=== PATIENT | female | born 1935 | race Caucasian/White ===

== ENCOUNTER 2016-12-17 20:31 | Inpatient (IN) | payer MEDICARE, OTHER ==
--- NOTE | ~2016-12-17 | DS ---
Discharge Summary [address] [place]. [address] NAME: TU EMMANUEL : 37 STATUS : DIS IN PAT#: [id number] AGE: 81 ADM/REG DATE : 12/17/16 MR#: [id number] REPORT SERV DATE: 12/24/16 DICTATED BY: TRACEE STORM DATE: 12/23/16 REPORT STATUS : Draft TRANSCRIBED BY: MODL DATE: 12/23/16 ADMISSION DATE: 12/17/2016 DISCHARGE DATE: 12/23/2016 DISCHARGE DIAGNOSES: 1. Invasive adenocarcinoma of the colon, status post laparoscopic assisted right colectomy, Dr. Dixon, 12/21/2016. 2. Acute gastrointestinal bleeding. 3. Acute blood loss anemia. 4. Mild aortic stenosis. 5. Left ventricular diastolic dysfunction. 6. Hypertension. 7. Hyperlipidemia. 8. Diverticulosis. 9. Hiatal hernia. 10.Gastritis. 11.Duodenitis. 12.Positive ARTHUR, rheumatoid arthritis, and polyclonal gammopathy. Question Sjogren syndrome. OPERATIONS AND PROCEDURES: 1. Colonoscopy and upper GI endoscopy, 12/19/2016, Dr. Gracia. 2. Laparoscopic assisted right colectomy, 12/21/2016, Dr. Dixon. PRESENT ILLNESS: This is a 81-year-old white female, who was triaged in the emergency room on 12/17/2016 at 1735 hours with chief complaint of rectal bleeding. Admission vital signs, blood pressure 129/67, temperature 98.3, pulse 58, respirations 20, O2 saturation 98. After evaluation in the emergency room, her diagnoses were: 1. GI bleed. 2. Anemia. 3. Generalized weakness. 4. Left bundle branch block. She was referred to the Hospitalist Service for admission. She was seen by Dr. Deshawn Lemons and admitted as described on admission history and physical examination. Of note, was that she had a history of colon polyps. ADDITIONAL HISTORY: Per Dr. Lemons. PHYSICAL EXAMINATION: Per Dr. Lemons. ADMISSION LABORATORY: Per Dr. Lemons. Discharge Summary [address] [place]. [address] NAME: TU EMMANUEL : 37 STATUS : DIS IN PAT#: [id number] AGE: 81 ADM/REG DATE : 12/17/16 MR#: [id number] REPORT SERV DATE: 12/24/16 DICTATED BY: TRACEE STORM DATE: 12/23/16 REPORT STATUS : Draft TRANSCRIBED BY: YOANA DATE: 12/23/16 HOSPITAL COURSE: She was admitted by Dr. Lemons with: 1. Gastrointestinal bleeding. 2. Acute blood loss anemia, symptomatic. 3. Orthostasis. 4. Aortic stenosis. 5. New left bundle branch block. She was admitted to [address] [place] [address]. She was started on IV infusion. Her aspirin was held. She was given crystalloid and packed red blood cell resuscitation. Her hospitalist care was by Dr. Mahmood on 12/18/2016, 12/19/2016, and 12/20/2016 and the undersigned on 12/21/2016, 12/22/2016, and 12/23/2016. Her admission hemoglobin was 8.9. It fell to 8.5. She was transfused to a hemoglobin of 10 on 12/18/2016. Subsequent hemoglobins were 9.4, 9.6, 9, 9.2, and 9.2. With hemodynamic and hematologic stabilization, she was taken to the endoscopy suite on 12/19/[address] Gracia. An upper GI endoscopy was performed with findings of hiatal hernia, chronic gastritis, and chronic duodenitis. A colonoscopy was performed. An infiltrative nonobstructing medium-sized mass was found in the proximal ascending colon. The mass was noncircumferential. The mass measured 4 cm in length. A biopsy was done. Two sessile polyps were found at the hepatic flexure. A few small mouthed diverticula were found at the hepatic flexure and sigmoid colon. Internal hemorrhoids were noted. Subsequent pathology was invasive adenocarcinoma. Surgical consultation was obtained. She was seen by Dr. Felix Dixon. The above-mentioned procedure was done on 12/21/2016. There were no brandyn- or post-procedural complications. Her diet was rapidly advanced. When seen by the undersigned on 12/22/2016, she had no chest pain, dyspnea, or nausea and minimal postoperative pain. She was cognitively clear and hemodynamically stable. On 12/23/2016, she felt well. She was ambulatory. She thought she could manage at home. She was seen by Dr. Dixon and the undersigned. She was eating without nausea, vomiting, or abdominal pain. She was not having rectal bleeding. Her IV fluids, BASKET OPERATOR, and Zambrano catheter were discontinued. She was able to void. It was felt, she could be safely discharged home to be seen by her primary care physician, Dr. Priscilla Neil in one week and Dr. Dixon in two weeks. She has yearly followup with Dr. Miller. Discharge Summary [address] [id number] [place]. [address] NAME: TU EMMANUEL : 37 STATUS : DIS IN PAT#: [id number] AGE: 81 ADM/REG DATE : 12/17/16 MR#: [id number] REPORT SERV DATE: 12/24/16 DICTATED BY: TRACEE STORM DATE: 12/23/16 REPORT STATUS : Draft TRANSCRIBED BY: MODL DATE: 12/23/16 She will continue her home diet with this low sodium. She will gradually increase her activity level. DISCHARGE MEDICATIONS: Pending outpatient followup will be amlodipine 10 mg daily; Coreg 12.5 mg twice daily; Cozaar 100 mg daily; Protonix 40 mg twice daily for four weeks, then daily; Zocor 10 mg daily; HydroDIURIL 12.5 mg daily; Caltrate 600 daily; fish oil 2400 mg daily; glucosamine chondroitin two tablets daily; cinnamon oral supplement two capsules daily; aspirin 81 mg daily; biotin 5 mg daily; vitamin D 1000 units daily; lysine 500 mg daily; magnesium oxide 400 mg daily; Florastor 250 mg daily; turmeric 400 mg daily; melatonin 3 mg at bedtime as needed; [place] 5/325 every four to six hours as needed for pain. Further Oncology consultation pending final surgical path. Discharge time greater than 30 minutes. DICTATED BY: Tracee Storm M.D. DD/YOANA Tracee Storm M.D. / [id number] CC: Preeti Glasgow M.D. Kevin P Luce, M.D. Walter Rose, M.D. Henry Paik, M.D. Young S Chang, MD Lisa Gail Carkner, M.D.
--- NOTE | ~2016-12-17 | CN ---
Consultation Report [facility] [address] [place]. [address] NAME: TU EMMANUEL : 37 STATUS : ADM IN PAT#: [id number] AGE: 81 ADM/REG DATE : 12/17/16 MR#: [id number] REPORT SERV DATE: 12/18/16 DICTATED BY: SONIDO GRACIA DATE: 12/18/16 REPORT STATUS : Draft TRANSCRIBED BY: MODL DATE: 12/18/16 CONSULTATION DATE OF CONSULTATION: 12/18/2016 INDICATION: The patient with GI bleeding. HISTORY OF PRESENT ILLNESS: 81-year-old female, who was in her usual state of good health until about four days ago, began experiencing loose, gnzzwu-jj-qxna colored stool, which worsened as the days went by, toward maroon dark stool with streaks of clots. There was no associated abdominal pain. Fever and chills were absent. Stool was slightly loose. There were some formed fecal elements as well. Her previous colonoscopy was more than four years ago with removal of polyp. She believes diverticulosis was found. PAST MEDICAL HISTORY: Aortic stenosis, history of colon polyps, anemia, and hypertension. 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 MEDICATIONS: See MAR. ALLERGIES: NO KNOWN DRUG ALLERGIES. SOCIAL HISTORY: Quit tobacco 22 years ago. Denies any alcohol use. PHYSICAL EXAMINATION: VITAL SIGNS: Temperature is 96.4, blood pressure 153/67, pulse of 68. HEENT: Head is normocephalic, atraumatic. Throat is clear. LUNGS: Clear. HEART: S1, S2 with 1/6 systolic ejection murmur. ABDOMEN: Normoactive bowel sounds. Soft, nondistended, and nontender. EXTREMITIES: Negative for cyanosis, clubbing, or edema. LABORATORY STUDIES: Shows sodium 138, potassium 3.6, BUN 13, creatinine 0.65, white count of 4.7, and H and H of 9.5 and 29.3. IMPRESSION: Gastrointestinal bleeding. For need of further evaluation with upper endoscopy and colonoscopy to rule out ulcer disease, colonic polyps, or diverticular bleeding. RADHA/YOANA Sonido Gracia, Consultation Report [address] [place] [facility] [address] NAME: TU EMMANUEL : 37 STATUS : ADM IN PAT#: [id number] AGE: 81 ADM/REG DATE : 12/17/16 MR#: [id number] REPORT SERV DATE: 12/18/16 DICTATED BY: SONIDO GRACIA DATE: 12/18/16 REPORT STATUS : Draft TRANSCRIBED BY: YOANA DATE: 12/18/16 Preeti / [id number] CC: MD Priscilla Emery M.D.
--- NOTE | ~2016-12-17 | HP ---
History And Physical [address] [place]. [address] NAME: TU EMMANUEL : 37 STATUS : ADM IN [facility]#: [id number] AGE: 81 ADM/REG DATE : 12/17/16 MR#: [id number] REPORT SERV DATE: 12/17/16 DICTATED BY: CHRISTIE BLOOM DATE: 12/17/16 REPORT STATUS : Draft TRANSCRIBED BY: MODL DATE: 12/17/16 DATE OF ADMISSION: 12/17/2016 CHIEF COMPLAINT: A 81-year-old female presenting with GI. HISTORY OF PRESENT ILLNESS: The patient's history was obtained through careful interview with the patient and coupled with review of [facility] and [facility] medical records. For about three days, the patient has had a gassy abdominal discomfort about a 2/10 severity only, that is actually resolved on day of admission. It is just three days ago that she had a bowel movement that looked "like gary Nazario-Aid" with minimal diluted blood in it; then two days ago, actually had no bowel movements. Today, she had three large bloody bowel movements with a very dark maroonish blood in it. There has been no recent melena. She has had nausea, but no vomiting. She has chronic dyspnea on exertion, noted different than usual. No chest pain. Today, she felt lightheaded, had orthostatics symptoms, had near syncope. No chest pain. No abdominal pain today. No headache. No back pain. REVIEW OF SYSTEMS: Otherwise, a 14-point review of systems was obtained and was negative. PAST MEDICAL HISTORY: 1. Aortic stenosis. Followed by Dr. Miller. 2. Colon polyps. Seen by Dr. Mcpherson. 3. Anemia. 4. Hypertension. 5. No lung disease. PAST SURGICAL HISTORY: 1. Triana's neuroma, bilateral feet. 2. Hernia repair x4. 3. Breast biopsy. ALLERGIES: NO KNOWN DRUG ALLERGIES. SOCIAL HISTORY: Quit smoking 22 years ago. Rare alcohol use. Lives in [place], [place]. Is , has three children, has grandchildren and great grandchildren. FAMILY HISTORY: Mother with heart disease. CURRENT MEDICATIONS: Include Norvasc 10 mg daily, aspirin 81 mg daily, biotin, calcium, History And Physical [address] [place]. [address] NAME: TU EMMANUEL : 37 STATUS : ADM IN PAT#: [id number] AGE: 81 ADM/REG DATE : 12/17/16 MR#: [id number] REPORT SERV DATE: 12/17/16 DICTATED BY: CHRISTIE BLOOM DATE: 12/17/16 REPORT STATUS : Draft TRANSCRIBED BY: MODLexa DATE: 12/17/16 vitamin D, Coreg 12.5 mg p.o. b.i.d., calcium D, cinnamon, glucosamine, hydrochlorothiazide 12.5 mg p.o. daily, losartan 100 mg p.o. daily, lysine, magnesium, melatonin, fish oil, Florastor, simvastatin, turmeric. PHYSICAL EXAMINATION: VITAL SIGNS: Temperature 98.3, pulse 58, blood pressure 129/67, respiratory rate 20, O2 saturation 98% on room air. Orthostatics are positive with an increase in pulse and drop in blood pressure. GENERAL: Pleasant, cooperative, female, in no evidence of acute distress. HEENT: Pupils equal, round, and reactive to light. The patient does have conjunctival pallor, but no scleral icterus. Nares are patent. Oropharynx is clear of obstruction. Moist mucous membranes. No intraoral lesions. NECK: Trachea midline. No thyromegaly. LYMPH: No cervical lymphadenopathy. No supraclavicular lymphadenopathy. RESPIRATORY: Clear to auscultation at bases. No wheezes, rales, or rhonchi. Normal respiratory effort. CARDIOVASCULAR: Bradycardic, regular rhythm. The patient does have a 3/6 systolic murmur radiating up into the neck consistent with aortic stenosis. No rubs or gallops. No extremity edema is appreciated. ABDOMEN: Soft, nontender, nondistended. Normal bowel sounds auscultated throughout. No hepatosplenomegaly. DERMATOLOGICAL: Warm and dry extremities. No pallor. No cyanosis. PSYCHIATRIC: Normal affect. Good mood. Alert and oriented x3. LABORATORY DATA: White blood cell count 6.8, hemoglobin 8.9, hematocrit 27.9, platelets 319. Sodium 137, potassium 3.7, chloride 104, bicarb 28, BUN 20, creatinine 0.86, glucose 96. INR 1.2. STUDIES: 1. Chest x-ray by my own evaluation shows no acute cardiopulmonary process. 2. EKG by my own evaluation shows sinus rhythm, new left bundle-branch block compared to October 2014. ASSESSMENT AND PLAN: 1. Gastrointestinal bleed. Place on IV proton pump inhibitor drip. Consult Dr. Mcpherson, assistant auto center manager. Hold aspirin. 2. Acute blood loss anemia, symptomatic. Transfuse blood. 3. Orthostasis. Transfuse blood. Hold hydrochlorothiazide. Write parameters for patient blood pressure medications. 4. Aortic stenosis. Check echocardiogram. 5. New left bundle-branch block. Check echocardiogram. No chest pain. Check telemetry. KPL/MODL Christie Caro History And Physical [address] [address] NAME: TU EMMANUEL : 37 STATUS : ADM IN [facility]#: [id number] AGE: 81 ADM/REG DATE : 12/17/16 MR#: [id number] REPORT SERV DATE: 12/17/16 DICTATED BY: CHRISTIE BLOOM DATE: 12/17/16 REPORT STATUS : Draft TRANSCRIBED BY: YOANA DATE: 12/17/16 Preeti Bloom / [id number] CC: MD Priscilla Emery M.D. David Collins, M.D.
--- NOTE | ~2016-12-17 | OP ---
Record Of Operation [facility] [address] [place]. [address] NAME: TU EMMANUEL : 37 STATUS : DIS IN PAT#: [id number] AGE: 81 ADM/REG DATE : 12/17/16 MR#: [id number] REPORT SERV DATE: 12/24/16 DICTATED BY: FELIX BALLARD DATE: 12/24/16 REPORT STATUS : Draft TRANSCRIBED BY: MODL DATE: 12/24/16 DATE OF PROCEDURE: 12/21/2016 PREOPERATIVE DIAGNOSIS: Adenocarcinoma mid right/ascending colon. POSTOPERATIVE DIAGNOSIS: Adenocarcinoma mid right/ascending colon. PROCEDURE: Laparoscopic-assisted right hemicolectomy with ileal colostomy. SURGEON: Felix Ballard M.D. DESCRIPTION OF OPERATIVE PROCEDURE: The patient was brought to the operating suite, placed in a supine position, and underwent satisfactory general endotracheal anesthesia without incident. The skin of the abdomen was scrubbed, prepped, and draped in the usual sterile fashion. 0.5% Marcaine with epinephrine utilized as supplemental local anesthesia at all intended incision sites. The patient had undergone a laparoscopic ventral incisional hernia repair with 15 x 20 cm patch of polypropylene two years ago. Because of this, I approached the patient from the left lateral aspect of her abdomen. A left subcostal incision was performed, and then a disposable Veress insufflation needle was inserted into the peritoneal cavity, with intraperitoneal tip location ascertained using the saline hanging drop method. CO2 was insufflated into the intraperitoneal cavity for pressures of 15 mmHg. After adequate insufflation pressures were obtained, the Veress needle was removed and an 11 mm trocar was inserted through the left subcostal area into the peritoneal cavity, following which a rigid forward-viewing 10 mm laparoscope was used. Visualization of the intraabdominal parietes revealed no evidence of injury from initial insufflation or puncture. Two additional 5 mm trocars were placed in the left lateral and left lower quadrant of the abdomen. Attention was turned to the midline. As anticipated, there were fairly dense omental adhesions to the previous patch. Using a combination of blunt and cautery dissection, the omental adhesions were taken down off the back of the mesh patch, the hernia repair appeared intact. Then, attention was turned to mobilizing the ileocecum and the right colon. The tumor could be visualized as a "puckering" in the mid ascending right colon. The ileocecum and right colon were mobilized along the retroperitoneal line of Toldt as well as the hepatic flexure using the Harmonic Scalpel. After wide mobilization, laparoscopy was terminated. The trocars were removed and CO2 was allowed to egress from the peritoneal cavity. A right subcostal incision was performed, lateral to the previous mesh patch, dissecting through the skin, subcutaneous tissue, and the right rectus musculature to enter the peritoneal cavity. The kkek-[id number]-[id number] and entire right colon were eviscerated and further mobilization of the hepatic flexure was performed, elevating the colon up off the duodenal sweep and the Record Of Operation [facility] [address] [place]. [address] NAME: TU EMMANUEL : 37 STATUS : DIS IN PAT#: [id number] AGE: 81 ADM/REG DATE : 12/17/16 MR#: [id number] REPORT SERV DATE: 12/24/16 DICTATED BY: FELIX BALLARD DATE: 12/24/16 REPORT STATUS : Draft TRANSCRIBED BY: YOANA DATE: 12/24/16 remaining retroperitoneal attachments. Again, the tumor was readily obvious in the mid right colon. Proximal and distal transection of the colon was performed with a ALEXUS 75 linear stapler proximally in the distal/terminal ileum and distally through the avascular plane over the sweep of the duodenum in the proximal transverse colon. The mesentery was taken down between free ties of 2-0 Vicryl and Harmonic Scalpel and the specimen was handed off the table. The wound was irrigated and hemostasis was assured. Bowel continuity was reestablished via a riui-cr-ufxu stapled ileocolostomy. The antimesenteric borders of the respective bowel were lined up and a stay suture of 2-0 Vicryl was placed for orientation. Small enterotomies were created in the antimesenteric staple line and a ALEXUS-75 linear stapler was passed through these enterotomies. The antimesenteric vazquez of the bowel were lined up. The staple was closed and actuated creating a 75 mm stapled qiiy-no-oqtw anastomosis. The enterotomy created for the insertion of the stapler was closed with a TA60. Finally, the mesentery was reapproximated with running locking 2-0 Vicryl. The anastomosis was palpated and found to be widely patent. The anastomosis was placed back into the peritoneal cavity. Again, irrigation was performed. Hemostasis was assured. The abdominal wall was closed, closing the posterior rectus sheath with a running locking 0 Vicryl, and then multiple interrupted inwngu-se-yhnlw sutures of 0 Vicryl for the anterior rectus sheath and external oblique aponeurosis. Subcutaneous tissue was irrigated and closed with interrupted 3-0 Vicryl, running subcuticular stitch of 4-0 Vicryl for the skin. The left lateral abdominal incisions were closed subcutaneously with interrupted 3-0 Vicryl and running subcuticular stitch of 4-0 Vicryl for the skin. Dermabond skin adhesive placed at all sites. The patient tolerated the procedure well and was returned to PACU in stable condition. At the termination of the procedure, sponge, needle, lap, and instrument counts were correct x3. ESTIMATED BLOOD LOSS: Less than 20 mL. KAREEM/YOANA Felix Ballard M.D. / [id number] CC: Record Of Operation [address] [address] NAME: TU EMMANUEL : 37 STATUS : DIS IN PAT#: [id number] AGE: 81 ADM/REG DATE : 12/17/16 MR#: [id number] REPORT SERV DATE: 12/24/16 DICTATED BY: FELIX BALLARD DATE: 12/24/16 REPORT STATUS : Draft TRANSCRIBED BY: YOANA DATE: 12/24/16 Preeti Glasgow M.D.
--- NOTE | ~2016-12-17 | EGD ---
EGD REPORT [facility] [address] [address] NAME: AURY SWEET : 37 STATUS : ADM IN PAT#: [id number] AGE: 81 ADM/REG DATE : 12/17/16 MR#: [id number] REPORT SERV DATE: 12/19/16 DICTATED BY: SONIDO GRACIA DATE: 12/19/16 REPORT STATUS : Draft TRANSCRIBED BY: [employer] DATE: 12/19/16 Endoscopy Center Patient Name: Aury Sweet Date of : 1935 Attending MD: SONIDO GRACIA MD Procedure Date No Time: 12/19/2016 Procedure: Colonoscopy Indications: Hematochezia, Iron deficiency anemia Referring MD: ELSA LEBLANC, TRACEE ALICIA MD Medicines: Propofol per Anesthesia Complications: No immediate complications. Procedure: Pre-Anesthesia Assessment: - ASA Grade Assessment: III - A patient with severe systemic disease. After I obtained informed consent, the scope was passed under direct vision. Throughout the procedure, the patient's blood pressure, pulse, and oxygen saturations were monitored continuously. The PCF [id number] was introduced through the anus and advanced to the cecum, identified by appendiceal orifice and ileocecal valve. The colonoscopy was performed without difficulty. The patient tolerated the procedure well. The quality of the bowel preparation was good. Findings: The perianal and digital rectal examinations were normal. An infiltrative non-obstructing medium-sized mass was found in the proximal ascending colon. The mass was non-circumferential. The mass measured four cm in length. In addition, its diameter measured thirty mm. No bleeding was present. This was biopsied with a cold forceps for histology. Two sessile polyps were found at the hepatic flexure. The polyps were 10 to 12 mm in size. These were biopsied with a cold forceps for histology. These polyps were very flat and very smooth surfaced. They were next to each other at the hepatic flexure. These polyps appeared benign. A few small-mouthed diverticula were found at the hepatic flexure. A few small-mouthed diverticula were found in the sigmoid colon. Internal hemorrhoids were found during retroflexion and were Grade I (internal hemorrhoids that do not prolapse). The rest of the colon was normal. Impression: - Likely malignant tumor in the proximal ascending colon. Removal was not done. Biopsied. - Two 10 to 12 mm polyps at the hepatic flexure. Biopsied. EGD REPORT [address] [address] NAME: AURY SWEET : 37 STATUS : ADM IN [facility]#: [id number] AGE: 81 ADM/REG DATE : 12/17/16 MR#: [id number] REPORT SERV DATE: 12/19/16 DICTATED BY: SONIDO GRACIA DATE: 12/19/16 REPORT STATUS : Draft TRANSCRIBED BY: [employer] DATE: 12/19/16 - Diverticulosis at the hepatic flexure. - Diverticulosis in the sigmoid colon. - Internal hemorrhoids. Recommendation: - Return patient to [facility] for [facility] care. Procedure Code(s): --- Professional --- 98723, Colonoscopy, flexible, proximal to splenic flexure; with biopsy, single or multiple Diagnosis Code(s): --- Professional --- D49.0, Neoplasm of unspecified behavior of digestive system D12.3, Benign neoplasm of transverse colon K64.0, First degree hemorrhoids K57.30, Diverticulosis of large intestine without perforation or abscess without bleeding K92.1, Melena D50.9, Iron deficiency anemia, unspecified CPT copyright 2013 [employer]. All rights reserved. The codes documented in this report are preliminary and upon sprinkler fitter review may be revised to meet current compliance requirements. Sonido Gracia MD SONIDO GRACIA MD 12/19/2016 8:33 AM This report has been signed electronically. Number of Addenda: 0 Note Initiated On: 12/19/2016 7:11 AM Scope Withdrawal Time 0 hours 8 minutes 38 seconds [address] [place] [address]
--- NOTE | ~2016-12-17 | EGD ---
EGD REPORT [facility] [address] [place] [address] NAME: AURY SWEET : 39 STATUS : ADM IN PAT#: [id number] AGE: 81 ADM/REG DATE : 12/17/16 MR#: [id number] REPORT SERV DATE: 12/19/16 DICTATED BY: SONIDO GRACIA DATE: 12/19/16 REPORT STATUS : Draft TRANSCRIBED BY: [facility] DATE: 12/19/16 Endoscopy Center Patient Name: Aury Sweet Date of : 1935 Attending MD: SONIDO GRACIA MD Procedure Date No Time: 12/19/2016 Procedure: Upper GI endoscopy Indications: Iron deficiency anemia, Hematochezia Referring MD: ELSA LEBLANC, TRACEE ALICIA MD Medicines: Propofol per Anesthesia Complications: No immediate complications. Procedure: Pre-Anesthesia Assessment: - ASA Grade Assessment: III - A patient with severe systemic disease. After obtaining informed consent, the endoscope was passed under direct vision. Throughout the procedure, the patient's blood pressure, pulse, and oxygen saturations were monitored continuously. The GIF [id number] was introduced through the mouth, and advanced to the second part of duodenum. The upper GI endoscopy was accomplished without difficulty. The patient tolerated the procedure well. Findings: A medium-sized hiatus hernia was present. Diffuse moderate inflammation characterized by erosions, erythema and friability was found in the stomach. Diffuse moderate inflammation characterized by erosions, erythema and friability was found in the duodenal bulb and in the first part of the duodenum. Impression: - Hiatus hernia. - Chronic gastritis. - Chronic duodenitis. Recommendation: - Return patient to [facility] for ongoing care. Procedure Code(s): --- Professional --- 25634, Esophagogastroduodenoscopy, flexible, transoral; diagnostic, including collection of specimen(s) by brushing or washing, when performed (separate procedure) Diagnosis Code(s): --- Professional --- K44.9, Diaphragmatic hernia without obstruction or gangrene EGD REPORT [address] [address] NAME: AURY SWEET : 39 STATUS : ADM IN [facility]#: [id number] AGE: 81 ADM/REG DATE : 12/17/16 MR#: [id number] REPORT SERV DATE: 12/19/16 DICTATED BY: SONIDO GRACIA. DATE: 12/19/16 REPORT STATUS : Draft TRANSCRIBED BY: [employer] DATE: 12/19/16 K29.50, Unspecified chronic gastritis without bleeding K29.80, Duodenitis without bleeding D50.9, Iron deficiency anemia, unspecified K92.1, Melena CPT copyright 2013 [employer]. All rights reserved. The codes documented in this report are preliminary and upon rehab services aide review may be revised to meet current compliance requirements. Sonido Gracia MD SONIDO GRACIA MD 12/19/2016 8:13 AM This report has been signed electronically. Number of Addenda: 0 Note Initiated On: 12/19/2016 7:33 AM Scope Withdrawal Time 0 hours 0 minutes [address] [place] [id number]
[2016-12-17 18:12] LABS: BASOPHILS 0.4 %; BASOPHILS ABSOLUTE 0.03 10/3/uL (0.0-0.16); EOSINOPHILS 2.2 %; EOSINOPHILS ABSOLUTE 0.15 10/3/uL (0.0-0.53); IMMATURE GRANULOCYTES 0.1 %; IMMATURE GRANULOCYTES ABSOLUTE 0.01 10/3/uL (0.0-0.11); LYMPHOCYTES 15.1 %; LYMPHOCYTES ABSOLUTE 1.03 10/3/uL (0.67-4.30); MEAN PLATELET VOLUME 7.8 fL (9.2-13.0); MONOCYTES 8.6 %; MONOCYTES ABSOLUTE 0.59 10/3/uL (0.21-1.20); NEUTROPHILS 73.6 %; NEUTROPHILS ABSOLUTE 5.03 10/3/uL (2.02-8.40); RBC DISTRIBUTION WIDTH 14.6 % (12.0-16.0); RED CELL COUNT 3.27 10/6/uL (4.0-5.6); WHITE BLOOD CELLS 6.8 10/3/uL (4.5-10.5)
[2016-12-17 18:13] LABS: HEMATOCRIT 27.9 % (36.0-48.0); HEMOGLOBIN 8.9 g/dL (12.0-16.0); MANUAL DIFF NO %; MEAN CORPUS HGB CONC 31.9 g/dL (32.0-36.0); MEAN CORPUSCULAR HEMOGLOB 27.2 pg (26.0-34.0); MEAN CORPUSCULAR VOLUME 85.3 fL (80-100); PLATELET COUNT 319 10/3/uL (150-400)
[2016-12-17 18:27] LABS: A/G RATIO 0.7 (0.7-1.9); ALBUMIN 3.4 G/DL (3.5-5.0); ALKALINE PHOSPHATASE 78 U/L (45-117); CALCIUM, SERUM 8.9 MG/DL (8.5-10.4); CHLORIDE, SERUM 104 MMOL/L (96-112); CO2 (CARBON DIOXIDE) 28 MMOL/L (24-34); CREATININE 0.86 MG/DL (0.55-1.02); GFR AFRICAN AMERICAN 74 ML/MIN (>=60); GFR NON AFRICAN AMERICAN 64 ML/MIN (>=60); GLOBULIN 5.2 G/DL (2.5-4.1); GLUCOSE, SERUM 96 MG/DL (60-99); INTERNATIONAL NORMAL RATI 1.2 UNITS (-); PARTIAL THROMBO TIME 27.8 SEC (22.5-37.2); POTASSIUM, SERUM 3.7 MMOL/L (3.5-5.3); PROTIME (NOT ORD) 14.6 SEC (12.0-14.5); SGOT(AST) 22 U/L (5-40); SGPT(ALT) 18 U/L (5-65); SODIUM, SERUM 137 MMOL/L (135-148); TOTAL BILIRUBIN 0.4 MG/DL (0-1.2); TOTAL PROTEIN 8.6 G/DL (6.0-8.5)
[2016-12-17 18:28] LABS: BUN (BLOOD UREA NITROGEN) 20 MG/DL (6-23)
[~2016-12-17 20:31] MED LIST: ASAB PO; BIOTIN10 MG OR; CALTRA600D PO; CINNAMON PLUS1 EACH PO; COREG12 PO; COZAAR100 MG PO; FERROUS SULF324 MG PO; FISH OIL1200 MG PO; FISH-EPA1000 MG PO; GLUCCHONDR PO; HCTZ12.5 PO; HYDROCHLOROT12.5 MG PO; L-LYSINE ACE500 MG OR; MAGOX4 PO; MELA3 PO; NORCO1 TA1 PO; NORV10 PO; NORV5 PO; PROBIOTIC; VITAMIN D31000 UNIT PO; ZOCOR10 PO
[2016-12-17] MEDS ORDERED: GLUCCHONDR PO (20:32)
[2016-12-17] MEDS ORDERED: HALF81 PO (20:32)
[2016-12-17] MEDS ORDERED: CINNAMONPO PO (20:32)
[2016-12-17] MEDS ORDERED: BIOTIN5 MG PO (20:33)
[2016-12-17] MEDS ORDERED: FLORASTOR250 MG PO (20:35)
[2016-12-17] MEDS ORDERED: VITAMIN D1000 UNI1 PO (20:35)
[2016-12-17] MEDS ORDERED: MAGOX4 PO (20:35)
[2016-12-17] MEDS ORDERED: L-LYSINE500 M1 PO (20:35)
[2016-12-17] MEDS ORDERED: TURMERIC PO (20:36)
[2016-12-17] MEDS ORDERED: MELA3 PO (20:36)
[2016-12-17 21:45] LABS: TROPONIN I <0.02 NG/ML (<0.05)
[2016-12-17 23:45] LABS: HEMATOCRIT 26.6 % (36.0-48.0); HEMOGLOBIN 8.5 g/dL (12.0-16.0)
[2016-12-18 06:12] LABS: BASOPHILS 0.2 %; BASOPHILS ABSOLUTE 0.01 10/3/uL (0.0-0.16); EOSINOPHILS 2.8 %; EOSINOPHILS ABSOLUTE 0.13 10/3/uL (0.0-0.53); HEMOGLOBIN 9.5 g/dL (12.0-16.0); IMMATURE GRANULOCYTES 0.2 %; IMMATURE GRANULOCYTES ABSOLUTE 0.01 10/3/uL (0.0-0.11); LYMPHOCYTES ABSOLUTE 0.89 10/3/uL (0.67-4.30); MEAN CORPUS HGB CONC 32.4 g/dL (32.0-36.0); MEAN CORPUSCULAR HEMOGLOB 27.6 pg (26.0-34.0); MEAN CORPUSCULAR VOLUME 85.2 fL (80-100); MEAN PLATELET VOLUME 8.2 fL (9.2-13.0); MONOCYTES 10.9 %; MONOCYTES ABSOLUTE 0.51 10/3/uL (0.21-1.20); NEUTROPHILS 66.9 %; NEUTROPHILS ABSOLUTE 3.14 10/3/uL (2.02-8.40); PLATELET COUNT 298 10/3/uL (150-400); RBC DISTRIBUTION WIDTH 14.7 % (12.0-16.0); RED CELL COUNT 3.44 10/6/uL (4.0-5.6); WHITE BLOOD CELLS 4.7 10/3/uL (4.5-10.5)
[2016-12-18 06:14] LABS: INTERNATIONAL NORMAL RATI 1.2 UNITS (-); PARTIAL THROMBO TIME 27.5 SEC (22.5-37.2); PROTIME (NOT ORD) 15.3 SEC (12.0-14.5)
[2016-12-18 06:15] LABS: HEMATOCRIT 29.3 % (36.0-48.0); MANUAL DIFF NO %
[2016-12-18 06:39] LABS: A/G RATIO 0.7 (0.7-1.9); CALCIUM, SERUM 8.9 MG/DL (8.5-10.4); CHLORIDE, SERUM 108 MMOL/L (96-112); CO2 (CARBON DIOXIDE) 24 MMOL/L (24-34); CREATININE 0.65 MG/DL (0.55-1.02); GFR AFRICAN AMERICAN 98 ML/MIN (>=60); GFR NON AFRICAN AMERICAN 84 ML/MIN (>=60); GLOBULIN 4.6 G/DL (2.5-4.1); GLUCOSE, SERUM 93 MG/DL (60-99); POTASSIUM, SERUM 3.6 MMOL/L (3.5-5.3); SGOT(AST) 23 U/L (5-40); SGPT(ALT) 16 U/L (5-65); SODIUM, SERUM 138 MMOL/L (135-148); TOTAL BILIRUBIN 0.7 MG/DL (0-1.2); TOTAL PROTEIN 7.6 G/DL (6.0-8.5); TROPONIN I <0.02 NG/ML (<0.05)
[2016-12-18 06:41] LABS: ALKALINE PHOSPHATASE 66 U/L (45-117); BUN (BLOOD UREA NITROGEN) 13 MG/DL (6-23)
[2016-12-18 11:19] LABS: HEMATOCRIT 30.8 % (36.0-48.0); HEMOGLOBIN 9.9 g/dL (12.0-16.0)
[2016-12-18 18:21] LABS: HEMATOCRIT 30.6 % (36.0-48.0)
[2016-12-18 23:35] LABS: HEMATOCRIT 28.9 % (36.0-48.0); HEMOGLOBIN 9.4 g/dL (12.0-16.0)
[2016-12-19 05:39] LABS: BASOPHILS 0.4 %; BASOPHILS ABSOLUTE 0.02 10/3/uL (0.0-0.16); EOSINOPHILS 1.7 %; EOSINOPHILS ABSOLUTE 0.09 10/3/uL (0.0-0.53); HEMATOCRIT 29.9 % (36.0-48.0); HEMOGLOBIN 9.6 g/dL (12.0-16.0); IMMATURE GRANULOCYTES 0.2 %; IMMATURE GRANULOCYTES ABSOLUTE 0.01 10/3/uL (0.0-0.11); LYMPHOCYTES 16.8 %; LYMPHOCYTES ABSOLUTE 0.91 10/3/uL (0.67-4.30); MEAN CORPUS HGB CONC 32.1 g/dL (32.0-36.0); MEAN CORPUSCULAR HEMOGLOB 27.2 pg (26.0-34.0); MEAN CORPUSCULAR VOLUME 84.7 fL (80-100); MEAN PLATELET VOLUME 8.2 fL (9.2-13.0); MONOCYTES 8.1 %; MONOCYTES ABSOLUTE 0.44 10/3/uL (0.21-1.20); NEUTROPHILS 72.8 %; NEUTROPHILS ABSOLUTE 3.95 10/3/uL (2.02-8.40); PLATELET COUNT 314 10/3/uL (150-400); RBC DISTRIBUTION WIDTH 15.1 % (12.0-16.0); RED CELL COUNT 3.53 10/6/uL (4.0-5.6); WHITE BLOOD CELLS 5.4 10/3/uL (4.5-10.5)
[2016-12-19 05:41] LABS: MANUAL DIFF NO %
[2016-12-19 05:50] LABS: CALCIUM, SERUM 9.2 MG/DL (8.5-10.4); CHLORIDE, SERUM 109 MMOL/L (96-112); CO2 (CARBON DIOXIDE) 26 MMOL/L (24-34); CREATININE 0.62 MG/DL (0.55-1.02); GFR AFRICAN AMERICAN 99 ML/MIN (>=60); GFR NON AFRICAN AMERICAN 86 ML/MIN (>=60); GLUCOSE, SERUM 89 MG/DL (60-99); SODIUM, SERUM 142 MMOL/L (135-148)
[2016-12-19 05:52] LABS: BUN (BLOOD UREA NITROGEN) 9 MG/DL (6-23)
[2016-12-19 21:50] LABS: CEA 1.2 NG/ML
[2016-12-20 05:51] LABS: BASOPHILS 0.2 %; BASOPHILS ABSOLUTE 0.01 10/3/uL (0.0-0.16); EOSINOPHILS 1.9 %; EOSINOPHILS ABSOLUTE 0.11 10/3/uL (0.0-0.53); HEMATOCRIT 27.9 % (36.0-48.0); IMMATURE GRANULOCYTES 0.2 %; IMMATURE GRANULOCYTES ABSOLUTE 0.01 10/3/uL (0.0-0.11); LYMPHOCYTES 18.3 %; LYMPHOCYTES ABSOLUTE 1.05 10/3/uL (0.67-4.30); MANUAL DIFF NO %; MEAN CORPUS HGB CONC 32.3 g/dL (32.0-36.0); MEAN CORPUSCULAR HEMOGLOB 27.4 pg (26.0-34.0); MEAN CORPUSCULAR VOLUME 85.1 fL (80-100); MEAN PLATELET VOLUME 8.1 fL (9.2-13.0); MONOCYTES 11.7 %; MONOCYTES ABSOLUTE 0.67 10/3/uL (0.21-1.20); NEUTROPHILS 67.7 %; PLATELET COUNT 281 10/3/uL (150-400); RBC DISTRIBUTION WIDTH 14.9 % (12.0-16.0); RED CELL COUNT 3.28 10/6/uL (4.0-5.6); WHITE BLOOD CELLS 5.8 10/3/uL (4.5-10.5)
[2016-12-20 05:59] LABS: BUN (BLOOD UREA NITROGEN) 9 MG/DL (6-23); CHLORIDE, SERUM 109 MMOL/L (96-112); CO2 (CARBON DIOXIDE) 24 MMOL/L (24-34); GFR AFRICAN AMERICAN 96 ML/MIN (>=60); GFR NON AFRICAN AMERICAN 82 ML/MIN (>=60); GLUCOSE, SERUM 82 MG/DL (60-99); POTASSIUM, SERUM 3.9 MMOL/L (3.5-5.3); SODIUM, SERUM 139 MMOL/L (135-148)
[2016-12-22 06:19] LABS: BASOPHILS 0 %; EOSINOPHILS 0.4 %; EOSINOPHILS ABSOLUTE 0.06 10/3/uL (0.0-0.53); HEMATOCRIT 29.3 % (36.0-48.0); HEMOGLOBIN 9.2 g/dL (12.0-16.0); IMMATURE GRANULOCYTES 0.4 %; IMMATURE GRANULOCYTES ABSOLUTE 0.06 10/3/uL (0.0-0.11); LYMPHOCYTES 3.3 %; LYMPHOCYTES ABSOLUTE 0.55 10/3/uL (0.67-4.30); MANUAL DIFF NO %; MEAN CORPUS HGB CONC 31.4 g/dL (32.0-36.0); MEAN CORPUSCULAR HEMOGLOB 27.1 pg (26.0-34.0); MEAN CORPUSCULAR VOLUME 86.2 fL (80-100); MEAN PLATELET VOLUME 9.1 fL (9.2-13.0); MONOCYTES 5.8 %; MONOCYTES ABSOLUTE 0.97 10/3/uL (0.21-1.20); NEUTROPHILS 90.1 %; PLATELET COUNT 248 10/3/uL (150-400); RBC DISTRIBUTION WIDTH 14.7 % (12.0-16.0); WHITE BLOOD CELLS 16.7 10/3/uL (4.5-10.5)
[2016-12-22 06:42] LABS: A/G RATIO 0.8 (0.7-1.9); ALBUMIN 3.2 G/DL (3.5-5.0); BUN (BLOOD UREA NITROGEN) 10 MG/DL (6-23); CALCIUM, SERUM 9.1 MG/DL (8.5-10.4); CHLORIDE, SERUM 108 MMOL/L (96-112); CO2 (CARBON DIOXIDE) 22 MMOL/L (24-34); CREATININE 0.59 MG/DL (0.55-1.02); GFR AFRICAN AMERICAN 101 ML/MIN (>=60); GFR NON AFRICAN AMERICAN 87 ML/MIN (>=60); GLOBULIN 4.1 G/DL (2.5-4.1); POTASSIUM, SERUM 4.5 MMOL/L (3.5-5.3); SGPT(ALT) 31 U/L (5-65); SODIUM, SERUM 140 MMOL/L (135-148); TOTAL BILIRUBIN 0.3 MG/DL (0-1.2); TOTAL PROTEIN 7.3 G/DL (6.0-8.5)
[2016-12-22 06:43] LABS: ALKALINE PHOSPHATASE 54 U/L (45-117); GLUCOSE, SERUM 137 MG/DL (60-99)
[2016-12-22 06:44] LABS: SGOT(AST) 42 U/L (5-40)
[2016-12-23 06:20] LABS: BASOPHILS 0 %; EOSINOPHILS 0.1 %; EOSINOPHILS ABSOLUTE 0.01 10/3/uL (0.0-0.53); HEMATOCRIT 28.6 % (36.0-48.0); HEMOGLOBIN 9.2 g/dL (12.0-16.0); IMMATURE GRANULOCYTES 0.3 %; IMMATURE GRANULOCYTES ABSOLUTE 0.03 10/3/uL (0.0-0.11); LYMPHOCYTES 5.4 %; LYMPHOCYTES ABSOLUTE 0.61 10/3/uL (0.67-4.30); MANUAL DIFF NO %; MEAN CORPUS HGB CONC 32.2 g/dL (32.0-36.0); MEAN CORPUSCULAR HEMOGLOB 27.3 pg (26.0-34.0); MEAN CORPUSCULAR VOLUME 84.9 fL (80-100); MEAN PLATELET VOLUME 8.5 fL (9.2-13.0); MONOCYTES 5.7 %; MONOCYTES ABSOLUTE 0.64 10/3/uL (0.21-1.20); NEUTROPHILS 88.5 %; NEUTROPHILS ABSOLUTE 10.02 10/3/uL (2.02-8.40); PLATELET COUNT 325 10/3/uL (150-400); RBC DISTRIBUTION WIDTH 14.8 % (12.0-16.0); RED CELL COUNT 3.37 10/6/uL (4.0-5.6); WHITE BLOOD CELLS 11.3 10/3/uL (4.5-10.5)
[2016-12-23 06:31] LABS: BUN (BLOOD UREA NITROGEN) 10 MG/DL (6-23); CALCIUM, SERUM 8.6 MG/DL (8.5-10.4); CHLORIDE, SERUM 102 MMOL/L (96-112); CO2 (CARBON DIOXIDE) 24 MMOL/L (24-34); CREATININE 0.57 MG/DL (0.55-1.02); GFR AFRICAN AMERICAN 102 ML/MIN (>=60); GFR NON AFRICAN AMERICAN 88 ML/MIN (>=60); POTASSIUM, SERUM 4.5 MMOL/L (3.5-5.3)
[2016-12-23 06:32] LABS: GLUCOSE, SERUM 107 MG/DL (60-99); SODIUM, SERUM 133 MMOL/L (135-148)
[2016-12-23] MEDS ORDERED: PROTONIX PO (13:03)
[2016-12-23] MEDS ORDERED: NORCO1 TA1 PO (13:05)
== END 2016-12-23 14:40 | disposition home or self-care (01) | DRG 330 ==
LOC: ER 20:31 → 6NO 21:00
PROVIDERS: Hospitalist; Internal Medicine; Internal Medicine Gastroenterology; Specialist
PROC: 30233N1 Transfusion of Nonautologous Red Blood Cells into Peripheral Vein, Percutaneous Approach (ICD-10-PCS; 2016-12-18)
PROC: 0DJ08ZZ Inspection of Upper Intestinal Tract, Via Natural or Artificial Opening Endoscopic (ICD-10-PCS; 2016-12-19)
PROC: 0DBK8ZX Excision of Ascending Colon, Via Natural or Artificial Opening Endoscopic, Diagnostic (ICD-10-PCS; 2016-12-19 08:00)
PROC: 0DTF0ZZ Resection of Right Large Intestine, Open Approach (ICD-10-PCS; principal; 2016-12-21 15:45)
DX: C18.2 Malignant neoplasm of ascending colon (principal); K92.2 Gastrointestinal hemorrhage, unspecified; I35.0 Nonrheumatic aortic (valve) stenosis; D89.0 Polyclonal hypergammaglobulinemia; D62 Acute posthemorrhagic anemia; I44.7 Left bundle-branch block, unspecified; M06.9 Rheumatoid arthritis, unspecified; I10 Essential (primary) hypertension; D12.3 Benign neoplasm of transverse colon; K64.0 First degree hemorrhoids; K57.30 Diverticulosis of large intestine without perforation or abscess without bleeding; I95.1 Orthostatic hypotension; K44.9 Diaphragmatic hernia without obstruction or gangrene; K29.50 Unspecified chronic gastritis without bleeding; K29.80 Duodenitis without bleeding; Z53.31 Laparoscopic surgical procedure converted to open procedure; Z86.010 Personal history of colon polyps; Z87.891 Personal history of nicotine dependence
CPT/HCPCS: 36415; 71010; 74177; 80048; 80053; 81001; 82378; 83735; 83880; 84443; 84484; 85014; 85018; 85025; 85610; 85730; 86850; 86900; 86901; 86920; 88305; 88309; 88313; 88341; 88342; 93005; 96374; 99285; A9270-GY; C8929; C9113; G0463; J0330; J0690; J2250; J2405; J2710; J2795; J3010; P9016; P9045; Q9957; Q9967